=== PATIENT | female | born 1995 | race Hispanic/Latino ===

== ENCOUNTER 2024-08-22 02:45 | Emergency (ER) | payer SELFPAY ==
[~2024-08-22] VITALS: Ht 160 cm; Wt 81.6 kg
[2024-08-22 03:07] VITALS: TEMP 96.6
[2024-08-22 03:15] LABS: APPEARANCE,URINE CLEAR (CLEAR); BILIRUBIN,URINE NEGATIVE (NEGATIVE); COLOR,URINE LIGHT-YELLOW (YELLOW); GLUCOSE, URINE (UA) NEGATIVE (NEGATIVE); KETONES,URINE NEGATIVE (NEGATIVE); LEUKOCYTE ESTERASE ,URINE NEGATIVE Leu/uL (NEGATIVE); NITRATE,URINE NEGATIVE (NEGATIVE); OCCULT BLOOD,URINE LARGE (NEGATIVE); PH,URINE 6.5 (5.0-8.0); PROTEIN,URINE NEGATIVE (NEGATIVE); UROBILINOGEN,URINE 0.2 mg/dL (0.2-1.0)
[2024-08-22 03:19] LABS: ADD UA MICROSCOPIC YES
[2024-08-22 03:20] LABS: BACTERIA,URINE RARE /HPF (None Seen); MUCUS,URINE RARE LPF (None Seen); RBC,URINE 51-100 /HPF (0-1); SQUAMOUS EPITHELIAL CELL,UR RARE /HPF (0-2)
--- NOTE | 2024-08-22 04:05 | ERN ---
General Chief Complaint: Abdominal Pain Stated Complaint: EPIGASTRIC PAIN Time Seen by MD: 04:00 Source: patient History of Present Illness Initial Comments 29-year-old healthy female who ate a lot of hot wings today before going to bed and then was woken up 2 hours ago by midepigastric pain that is constant. It does not migrate to any other part of her abdomen in his centered right there a little bit subxiphoid. She has had this pain in the past but not as severe as tonight. Patient has no other medical problems. Allergies: Coded Allergies: No Known Allergies (Unverified Allergy, Unknown, 08/22/24) Past Medical History Past Medical History: No Pertinent History, Other Medical History Other: GASTRITIS Past Surgical History: None Female( History) LMP: Aug 21, 2024 Constitutional: (-) chills, (-) diaphoresis, (-) fever, (-) malaise, (-) weakness, (-) other documentation EENTM: (-) eye pain, (-) blurred vision, (-) tearing, (-) double vision, (-) ear pain, (-) ear discharge, (-) nose pain, (-) nose congestion, (-) throat pain, (-) Throat swelling, (-) mouth pain, (-) tooth pain, (-) mouth swelling, (-) other documentation Respiratory: (-) cough, (-) orthopnea, (-) short of breath, (-) stridor, (-) wheezing, (-) other documentation Cardiovascular: (-) chest pain, (-) edema, (-) palpitations, (-) syncope, (-) dyspnea on exertion, (-) other documentation Gastrointestinal/Abdominal: (+) nausea, (+) abdominal pain Genitourinary: (-) vaginal discharge, (-) vaginal bleeding, (-) dysuria, (-) frequency, (-) hematuria, (-) pain, (-) other documentation Musculoskeletal: (-) Neck pain, (-) back pain, (-) Flank Pain, (-) joint pain, (-) joint swelling, (-) muscle pain, (-) muscle stiffness, (-) gout, (-) other documentation Skin: (-) laceration, (-) contusion, (-) abrasion, (-) abscess, (-) rash, (-) change in color, (-) change in hair, (-) change in nails, (-) diaphoresis, (-) dryness, (-) other documentation Neuro: (-) altered mental status, (-) headache, (-) syncope, (-) paralysis, (-) numbness, (-) seizure, (-) pre-existing deficit, (-) tremors, (-) weakness, (-) dizziness, (-) slurred speech, (-) vertigo, (-) other documentation Physical Exam General Appearance: (+) moderate distress Head/Face Trauma: No Eye: bilateral eye normal inspection, bilateral eye PERRL, bilateral eye EOMI Ear, Nose, Throat: (+) hearing grossly normal, (+) normal ENT inspection Neck: (+) normal inspection, (+) supple Respiratory: (+) chest non-tender, (+) lungs clear Heart: (+) regular Vascular: (+) no edema Gastrointestinal: (+) soft, (+) bowel sound present, (+) tender Results Laboratory and Microbiology Lab and Micro Result Laboratory Tests Test 08/22/24 03:03 08/22/24 04:30 Urine Color LIGHT-YELLOW (YELLOW) Urine Appearance CLEAR (CLEAR) Urine pH 6.5 (5.0-8.0) Urine Specific [place] 1.021 (1.001-1.031) Urine Protein NEGATIVE mg/dL (NEGATIVE) Urine Glucose (UA) NEGATIVE mg/dL (NEGATIVE) Urine Ketones NEGATIVE mg/dL (NEGATIVE) Urine Occult Blood LARGE (NEGATIVE) H Urine Nitrate NEGATIVE (NEGATIVE) Urine Bilirubin NEGATIVE mg/dL (NEGATIVE) Urine Urobilinogen 0.2 mg/dL (0.2-1.0) Urine Leukocyte Esterase NEGATIVE Luan/uL Urine RBC 51-100 /HPF (0-1) H Urine WBC 2-5 /HPF (0-1) H Urine Squamous Epithelial Cells RARE /HPF (0-2) Urine Bacteria RARE /HPF (None Seen) Urine HCG, Qualitative NEGATIVE (NEGATIVE) White Blood Count 12.4 K/uL (4.8-10.8) H Red Blood Count 4.04 MIL/uL (4.00-5.50) Hemoglobin 12.5 g/dL (12.0-16.0) Hematocrit 37.3 % (36-48) Mean Corpuscular Volume 92.3 fL (79-99) Mean Corpuscular Hemoglobin 30.9 pg (27.0-33.0) Mean Corpuscular Hemoglobin Concent 33.5 g/dL (32.0-36.0) Red Cell Distribution Width 12.8 % (11.0-15.5) Platelet Count 293 K/uL (130-400) Mean Platelet Volume 9.3 fL (7.5-10.5) Immature Granulocyte % (Auto) 0.2 % (0-1) Neutrophils (%) (Auto) 80.8 % (40.0-77.0) H Lymphocytes (%) (Auto) 13.6 % (21.0-51.0) L Monocytes (%) (Auto) 4.2 % (3.0-13.0) Eosinophils (%) (Auto) 1.0 % (0.0-8.0) Basophils (%) (Auto) 0.2 % (0.0-5.0) Neutrophils # (Auto) 10.0 K/uL (1.8-7.7) H Lymphocytes # (Auto) 1.7 K/uL (1.0-4.8) Monocytes # (Auto) 0.5 K/uL (0.1-1.0) Eosinophils # (Auto) 0.13 K/uL (0.00-0.70) Basophils # (Auto) 0.02 K/uL (0.00-0.20) Absolute Immature Granulocyte (auto 0.03 K/uL (0-1) Nucleated Red Blood Cells 0.0 % (0.0-0.19) Sodium Level 139 mmol/L (136-145) Potassium Level 3.5 mmol/L (3.5-5.1) Chloride Level 104 mmol/L (101-111) Carbon Dioxide Level 28 mmol/L (21-32) Blood Urea Nitrogen 13 mg/dL (7-18) Creatinine 0.9 mg/dL (0.5-1.0) Glomerular Filtration Rate Calc 88 mL/min (>90) Random Glucose 114 mg/dL (70-105) H Total Calcium 8.4 mg/dL (8.5-10.1) L Troponin I High Sensitivity 16 ng/L (4-50) Lipase 61 U/L (16-77) MDM I have ordered the standard labs for nausea and vomiting. I have also ordered a GI cocktail. Further workup as the results come in. Nursing staff has already sent off a urine analysis and a urine test they are both negative. There is blood in the urine but patient is having her menses. CBC shows an elevated white blood cell count and chemistry panel is normal. Patient's abdominal pain decreased from a 10/10 to a 4/10 with a GI cocktail. She feels comfortable and would like to go home. We will discharge her with a prescription for omeprazole. She should follow up with her primary care physician to test for H pylori. ED Course Orders Procedure Category Date Status Time Urinalysis Profile LAB 08/22/24 Complete 03:02 ,Urine Test LAB 08/22/24 Complete 03:02 Cbc With Differential LAB 08/22/24 Complete 04:01 Troponin I High LAB 08/22/24 Complete Sensitivity 04:01 Lactated Ringers PHA 08/22/24 Complete 1000ml (Lactated 04:30 Ondansetron 4mg Inj PHA 08/22/24 Complete (Zofran 4mg Inj) 04:30 Lidocaine Hcl 2% PHA 08/22/24 Complete Viscous (Lidocaine Hcl 04:30 Mag/Alum/Simeth 30ml PHA 08/22/24 Complete (Maalox Plus 30ml) 04:30 Dicyclomine Hcl PHA 08/22/24 Complete (Bentyl 10mg/5ml 04:30 Lipase LAB 08/22/24 Complete 04:01 Basic Metabolic Panel LAB 08/22/24 Complete 04:01 Current Medications Medications (Trade) Dose Ordered Sig/Srinivasan Route PRN Reason Start Time Stop Time Status Last Admin Dose Admin Al Hydroxide/Mg Hydroxide (MAALox PLUS 30ML) 30 ml ONCE ONCE PO 08/22/24 04:30 08/22/24 04:32 DC 08/22/24 04:28 Dicyclomine HCl (Bentyl 10mg/5ml Syrup) 10 mg ONCE ONCE PO 08/22/24 04:30 08/22/24 04:32 DC 08/22/24 04:28 Lactated Ringer's 1,000 ml @ 0 mls/hr ONCE ONCE IV 08/22/24 04:30 08/22/24 04:32 DC 08/22/24 04:27 Lidocaine HCl (Lidocaine HCl 2% Viscous) 10 ml ONCE ONCE PO 08/22/24 04:30 4/19/25 04:32 DC 08/22/24 04:28 Ondansetron HCl (zoFRAN 4MG INJ) 4 mg ONCE ONCE IVP 08/22/24 04:30 08/22/24 04:32 DC 08/22/24 04:28 Vital Signs Date Time Temp Pulse Resp B/P (MAP) Pulse Ox O2 Delivery O2 Flow Rate FiO2 08/22/24 04:33 68 16 128/60 99 Room Air* 0 21 08/22/24 03:07 96.6 65 16 132/71 99 Room Air* 0 21 08/22/24 02:47 96.6 65 16 136/79 100 Room Air DX & DISP Disposition: Discharge Departure Impression: Primary Impression: Heartburn Condition: Stable Scripts Omeprazole/Sodium Bicarbonate (Omeprazole-Bicarb 20-1,100 Cap) 20 Mg-1.1 Gram Capsule 1 CAP PO DAILY for 30 Days, #30 CAP 0 Refills Prov: JAMIA GRACIA MD 08/22/24 Referrals: SELF,REFERRAL (PCP) JAMIA GRACIA MD Aug 22, 2024 04:05
[2024-08-22] MEDS: LACTATED RINGERS 1000ML 1,000 ML IV ONE (04:27)
[2024-08-22] MEDS: ondanSETRON 4MG INJ IVP ONE (04:28)
[2024-08-22] MEDS: DICYCLOMINE HCL 10 MG/5 ML ML PO ONE (04:28)
[2024-08-22] MEDS: MAG/ALUM/SIMETH 30 ML UDCUP PO ONE (04:28)
[2024-08-22] MEDS: LIDOCAINE HCL 2% VISCOUS 15 ML UDCUP PO ONE (04:28)
[2024-08-22 04:42] LABS: BASOPHILS # (AUTO) 0.02 K/uL (0.00-0.20); BASOPHILS % (AUTO) 0.2 % (0.0-5.0); EOSINOPHILS # (AUTO) 0.13 K/uL (0.00-0.70); HEMATOCRIT 37.3 % (36-48); IMMATURE GRANULOCYTE ABSOLUTE 0.03 K/uL (0-1); LYMPHOCYTES # (AUTO) 1.7 K/uL (1.0-4.8); LYMPHOCYTES % (AUTO) 13.6 % (21.0-51.0); MEAN CORPUSCULAR HEMOGLOBIN 30.9 pg (27.0-33.0); MEAN CORPUSCULAR HGB CONC 33.5 g/dL (32.0-36.0); MEAN CORPUSCULAR VOLUME 92.3 fL (79-99); MONOCYTES # (AUTO) 0.5 K/uL (0.1-1.0); MONOCYTES % (AUTO) 4.2 % (3.0-13.0); NEUTROPHILS % (AUTO) 80.8 % (40.0-77.0); PLATELET COUNT (AUTO) 293 K/uL (130-400); RED BLOOD CELL COUNT(AUTO) 4.04 MIL/uL (4.00-5.50); RED CELL DISTRIBUTION WIDTH 12.8 % (11.0-15.5); WHITE BLOOD COUNT (AUTO) 12.4 K/uL (4.8-10.8)
[2024-08-22 04:52] LABS: CREATININE 0.9 mg/dL (0.5-1.0); POTASSIUM 3.5 mmol/L (3.5-5.1)
[2024-08-22] MEDS ORDERED: OMEP1CAP32 PO (05:05)
[2024-08-22 05:15] VITALS: BP 127/64; PULSE 69; RESP 18; O2SAT 99
== END 2024-08-22 05:23 | disposition home or self-care (01) ==
LOC: EDH 02:45
DX: R12 Heartburn (principal); Z79.899 Other long term (current) drug therapy
CPT/HCPCS: 99284; 96374; 96361; 84484; 80048; 83690; 85025; 81001; 81025; 36415; J7120; J2405